=== PATIENT | male | born 1970 | race Caucasian/White ===

== ENCOUNTER 2017-08-18 09:15 | Emergency (ER) | payer OTHER, SELFPAY ==
[2017-08-18 09:41] VITALS: BP 124/87; PULSE 99; RESP 18; TEMP 97.9; O2SAT 100
--- NOTE | 2017-08-18 09:52 | C.PDOC ---
History Of Present Illness 47 y/o male presents to the ER for evaluation of 1 episode of epistaxis which occurred yesterday and 1 episode of epistaxis which occurred in the morning today. Patient reports that he had epistaxis in the left nare. He notes that he had URI symptoms and he was given an injection of abx by his PMD yesterday. Patient states that he has a mild headache. Currently, patient is not experiencing any epistaxis in the ER. Time Seen by Provider: 08/18/17 09:48 Chief Complaint (Nursing): ENT Problem History Per: Patient History/Exam Limitations: None Onset/Duration Of Symptoms: Days Current Symptoms Are (Timing): Gone Symptoms Have Been: Episodic Severity: Moderate Past Medical History Reviewed: Historical Data, Nursing Documentation, Vital Signs Vital Signs: Last Vital Signs Temp 97.9 F 08/18/17 09:36 Pulse 99 H 08/18/17 09:36 Resp 18 08/18/17 09:36 BP 124/87 08/18/17 09:36 Pulse Ox 100 08/18/17 11:22 - Medical History PMH: HTN Surgical History: No Surg Hx Family History: States: No Known Family Hx - Social History Hx Alcohol Use: No Hx Substance Use: No - Immunization History Hx Tetanus Toxoid Vaccination: No Hx Influenza Vaccination: No Hx Pneumococcal Vaccination: No Review Of Systems Except As Marked, All Systems Reviewed And Found Negative. Constitutional: Negative for: Fever, Chills ENT: Positive for: Nose Discharge (currently resolved) Neurological: Positive for: Headache Physical Exam - Physical Exam Appears: Non-toxic, No Acute Distress, Other (comfortable) Skin: Normal Color, Warm, Dry Head: Atraumatic, Normacephalic Eye(s): bilateral: Normal Inspection Nose: Normal, No Discharge, No Epistaxis, No Tenderness (tenderness to palpation ) Oral Mucosa: Moist, Other (no blood in oral pharynx) Neck: Supple Chest: Symmetrical Cardiovascular: Rhythm Regular Respiratory: Normal Breath Sounds, No Rales, No Rhonchi, No Wheezing Neurological/Psych: Oriented x3, Normal Speech ED Course And Treatment O2 Sat by Pulse Oximetry: 100 (RA) Pulse Ox Interpretation: Normal Progress Note: Patient has been discharged with prescription for Afrin. Patient has been instructed to follow up with ENT in 1-2 days. Disposition Counseled Patient/Family Regarding: Diagnosis, Need For Followup, Rx Given - Disposition Referrals: Jimmy Robin MD [Staff Provider] - Disposition: HOME/ ROUTINE Disposition Time: 09:50 Condition: STABLE Additional Instructions: FOLLOW UP WITH EAR NOSE THROAT SPECIALIST IN 1-2 DAYS RETURN TO ER IF STMPTOMS WORSEN SEGUIMIENTO CON ESPECIALISTA EN [place] EN 1-2 [facility] SI LOS SNTOMAS EMPEORAN Prescriptions: Oxymetazoline 0.05% [Afrin 0.05%] 1 spr NS Q12H 3 Days bottle Instructions: Nosebleeds (DC) Forms: [employer] (Georgian) Print Language: MAURITIAN - Clinical Impression Clinical Impression: Left-sided nosebleed - Scribe Statement The provider has reviewed the documentation as recorded by the Scribe Sage Nelson Provider Attestation: All medical record entries made by the Scribe were at my direction and personally dictated by me. I have reviewed the chart and agree that the record accurately reflects my personal performance of the history, physical exam, medical decision making, and the department course for this patient. I have also personally directed, reviewed, and agree with the discharge instructions and disposition.
== END 2017-08-18 10:46 | disposition home or self-care (01) ==
LOC: C.ER 09:15
DX: R04.0 Epistaxis (principal)